=== PATIENT | female | born 1955 | race Caucasian/White ===

== ENCOUNTER 2017-02-01 16:20 | Inpatient (IN) | payer OTHER ==
[2017-02-01] VITALS (430 sets, daily range): BP systolic 78–99; BP diastolic 54–67; PULSE 83–90; TEMP 97.3–97.6; O2SAT 61–100
[~2017-02-01] VITALS: Ht 170.2 cm; Wt 83.4 kg
[~2017-02-01 16:20] MED LIST: ATARAX 25MG25 MG/TAB PO; CLEOCIN HCL300 MG PO; COPEGUS200 MG PO; INCIVEK375 MG PO; LODINE 300300 MG/CAP PO; PRINZIDE 12.5 M1 TA1 PO; PRINZIDE 25 MG-1 TAB PO; SINEQUAN 2525 MG/CAP PO; ZESTRIL 10MG10 MG
[2017-02-01 17:24] LABS: MEAN CELL VOLUME 87 fl (80.0-100.0); MEAN CORPUSCULAR HGB CONC 37 g/dl (33.0-37.0); MEAN PLATELET VOLUME 9.6 fl (7.4-10.4); PLATELET COUNT 200 K/mm3 (130-400); RED BLOOD COUNT 3.12 M/mm3 (4.10-5.30); WHITE BLOOD COUNT 8.7 K/mm3 (4.8-10.8)
[2017-02-01 17:35] LABS: ADJUSTED CALCIUM 7.8 mg/dL (8.4-10.2); ALBUMIN 2.8 gm/dL (3.5-5.0); BILIRUBIN,TOTAL 0.5 mg/dL (0.0-1.0); CALCIUM 6.8 mg/dL (8.4-10.2); POTASSIUM 3.2 mmol/L (3.4-5.0); TOTAL PROTEIN 5.5 gm/dL (6.4-8.2)
[2017-02-01 17:39] LABS: CREATININE, serum 6.64 mg/dL (0.52-1.25)
[2017-02-01 17:40] LABS: HEMATOCRIT 27.2 % (37.0-47.0); MEAN CORPUSCULAR HEMOGLOBIN 32 pg (27.0-31.0)
[2017-02-01 18:01] LABS: TROPONIN-I 0.028 ng/mL (0.000-0.034)
[2017-02-01] MEDS ORDERED: HCTZ 25MG TAB25 MG PO (18:05)
[2017-02-01] MEDS ORDERED: ZESTRIL30 MG PO (18:05)
[2017-02-01] MEDS ORDERED: PROMETHAZINE12.5 M5 PO (18:06)
[2017-02-01 18:34] LABS: HYALINE CAST >12 /lpf; PH 5 (5-8); SQUAMOUS EPITHELIAL 0-2 /hpf; URINE APPEARANCE Cloudy; URINE BACTERIA Rare /hpf; URINE BILIRUBIN Negative (NEGATIVE); URINE BLOOD 1+ (NEGATIVE); URINE COLOR Yellow; URINE GLUCOSE Negative (NEGATIVE); URINE KETONE Negative (NEGATIVE); URINE UROBILINOGEN Negative (NEGATIVE)
[2017-02-01 18:45] LABS: THYROID STIMULATING HORMONE 0.395 uIU/mL (0.465-4.680)
[2017-02-02] VITALS (816 sets, daily range): BP systolic 102–139; BP diastolic 61–85; PULSE 71–95; TEMP 97–98.4; O2SAT 50–100
[2017-02-02 06:39] LABS: BASO % 0.3 % (0.0-2.0); EOS % 0.7 % (0-4.0); GRAN # 4.1 (1.4-6.5); GRAN % 67.4 % (42.2-75.2); LYMPH # 1.5 (1.2-3.4); LYMPH % 24.4 % (20.0-51.0); MEAN CELL VOLUME 89 fl (80.0-100.0); MEAN CORPUSCULAR HGB CONC 36 g/dl (33.0-37.0); MONO # 0.4 (0.1-0.6); MONO % 6.7 % (1.7-9.3); PLATELET COUNT 214 K/mm3 (130-400); RED BLOOD COUNT 2.84 M/mm3 (4.10-5.30); REDCELL DISTRIBUTION WIDTH-CV 11.9 % (11.5-14.5); WHITE BLOOD COUNT 6.1 K/mm3 (4.8-10.8)
[2017-02-02 06:49] LABS: HEMATOCRIT 25.3 % (37.0-47.0); MEAN CORPUSCULAR HEMOGLOBIN 32 pg (27.0-31.0)
[2017-02-02 07:08] LABS: ADJUSTED CALCIUM 8.3 mg/dL (8.4-10.2); ALBUMIN 2.6 gm/dL (3.5-5.0); BILIRUBIN,TOTAL 0.4 mg/dL (0.0-1.0); CALCIUM 7.2 mg/dL (8.4-10.2); CREATININE, serum 3.17 mg/dL (0.52-1.25); POTASSIUM 3.4 mmol/L (3.4-5.0); TOTAL PROTEIN 5.2 gm/dL (6.4-8.2)
[2017-02-03] VITALS (385 sets, daily range): BP systolic 100–119; BP diastolic 59–74; PULSE 75–82; TEMP 97.3–99; O2SAT 71–100
[2017-02-03 04:45] LABS: BASO % 0.5 % (0.0-2.0); EOS # 0.1 (0.0-0.7); EOS % 2.3 % (0-4.0); GRAN # 2.7 (1.4-6.5); GRAN % 60.8 % (42.2-75.2); LYMPH # 1.2 (1.2-3.4); LYMPH % 27.1 % (20.0-51.0); MEAN CELL VOLUME 86 fl (80.0-100.0); MEAN CORPUSCULAR HGB CONC 36 g/dl (33.0-37.0); MEAN PLATELET VOLUME 9.3 fl (7.4-10.4); MONO # 0.4 (0.1-0.6); MONO % 8.8 % (1.7-9.3); PLATELET COUNT 170 K/mm3 (130-400); RED BLOOD COUNT 2.58 M/mm3 (4.10-5.30); REDCELL DISTRIBUTION WIDTH-CV 12.4 % (11.5-14.5); WHITE BLOOD COUNT 4.4 K/mm3 (4.8-10.8)
[2017-02-03 04:47] LABS: HEMATOCRIT 22.3 % (37.0-47.0); HEMOGLOBIN 8.1 g/dl (12.5-16.0); MEAN CORPUSCULAR HEMOGLOBIN 31 pg (27.0-31.0)
[2017-02-03 04:52] LABS: ADJUSTED CALCIUM 8.3 mg/dL (8.4-10.2); ALBUMIN 2.6 gm/dL (3.5-5.0); BILIRUBIN,TOTAL 0.4 mg/dL (0.0-1.0); CALCIUM 7.2 mg/dL (8.4-10.2); CREATININE, serum 0.92 mg/dL (0.52-1.25); POTASSIUM 3.1 mmol/L (3.4-5.0); TOTAL PROTEIN 5.1 gm/dL (6.4-8.2)
[2017-02-03 05:02] LABS: CREATININE, serum 0.92 mg/dL (0.52-1.25); FRACTIONAL EXCRETION OF NA+ 1.5 %
[2017-02-03 14:29] LABS: ADRENOCORTICOTROPIC HORMONE 32 pg/mL (())
[2017-02-04 02:38] VITALS: BP 103/62; PULSE 79; TEMP 98.1
[2017-02-04 07:16] LABS: BASO % 0.4 % (0.0-2.0); EOS # 0.3 (0.0-0.7); EOS % 5.8 % (0-4.0); GRAN # 3.4 (1.4-6.5); GRAN % 65.1 % (42.2-75.2); LYMPH # 1.1 (1.2-3.4); LYMPH % 21.5 % (20.0-51.0); MEAN CELL VOLUME 90 fl (80.0-100.0); MEAN CORPUSCULAR HGB CONC 35 g/dl (33.0-37.0); MEAN PLATELET VOLUME 9.9 fl (7.4-10.4); MONO # 0.4 (0.1-0.6); MONO % 6.8 % (1.7-9.3); PLATELET COUNT 180 K/mm3 (130-400); RED BLOOD COUNT 2.56 M/mm3 (4.10-5.30); REDCELL DISTRIBUTION WIDTH-CV 12.6 % (11.5-14.5); WHITE BLOOD COUNT 5.2 K/mm3 (4.8-10.8)
[2017-02-04 07:33] LABS: CALCIUM 6.8 mg/dL (8.4-10.2); CREATININE, serum 0.71 mg/dL (0.52-1.25); POTASSIUM 3.6 mmol/L (3.4-5.0)
[2017-02-04 07:38] LABS: HEMATOCRIT 22.9 % (37.0-47.0); HEMOGLOBIN 8.1 g/dl (12.5-16.0); MEAN CORPUSCULAR HEMOGLOBIN 32 pg (27.0-31.0)
[2017-02-04 07:42] LABS: MAGNESIUM 0.7 mg/dL (1.6-2.3)
[2017-02-04 08:28] VITALS: BP 85/47; PULSE 86; TEMP 97.8
[2017-02-04 10:41] LABS: RETIC % 1.2 % (0.5-3.52)
[2017-02-04 10:56] LABS: TOTAL IRON BINDING CAPACITY 224 ug/dL (265-497)
[2017-02-04 11:23] LABS: FERRITIN 161 ng/mL (11-264)
[2017-02-04 12:25] VITALS: BP 97/61; PULSE 81; TEMP 98.1
[2017-02-04 15:54] VITALS: BP 107/59; PULSE 74; TEMP 98.9
[2017-02-04 19:32] VITALS: BP 100/66; PULSE 89; TEMP 98.3
[2017-02-04 23:03] VITALS: BP 120/68; PULSE 90; TEMP 98.6
[2017-02-05] VITALS (11 sets, daily range): BP systolic 91–134; BP diastolic 50–81; PULSE 68–78; TEMP 97.6–98.4
[2017-02-05 07:14] LABS: BASO % 0.5 % (0.0-2.0); EOS # 0.4 (0.0-0.7); EOS % 5.9 % (0-4.0); GRAN # 3.9 (1.4-6.5); GRAN % 65.4 % (42.2-75.2); LYMPH # 1.3 (1.2-3.4); LYMPH % 21.2 % (20.0-51.0); MEAN CELL VOLUME 90 fl (80.0-100.0); MEAN CORPUSCULAR HGB CONC 35 g/dl (33.0-37.0); MONO # 0.4 (0.1-0.6); MONO % 6.7 % (1.7-9.3); PLATELET COUNT 165 K/mm3 (130-400); RED BLOOD COUNT 2.42 M/mm3 (4.10-5.30); REDCELL DISTRIBUTION WIDTH-CV 13.1 % (11.5-14.5); WHITE BLOOD COUNT 5.9 K/mm3 (4.8-10.8)
[2017-02-05 07:27] LABS: HEMATOCRIT 21.8 % (37.0-47.0); HEMOGLOBIN 7.6 g/dl (12.5-16.0); MEAN CORPUSCULAR HEMOGLOBIN 31 pg (27.0-31.0)
[2017-02-05 07:29] LABS: ADJUSTED CALCIUM 7.9 mg/dL (8.4-10.2); ALBUMIN 2.3 gm/dL (3.5-5.0); BILIRUBIN,TOTAL 0.3 mg/dL (0.0-1.0); CALCIUM 6.5 mg/dL (8.4-10.2); CREATININE, serum 0.58 mg/dL (0.52-1.25); POTASSIUM 4.2 mmol/L (3.4-5.0); TOTAL PROTEIN 4.6 gm/dL (6.4-8.2)
[2017-02-06 03:47] VITALS: BP 88/52; PULSE 81; TEMP 97.8
[2017-02-06 06:00] VITALS: BP 103/75
[2017-02-06 07:50] LABS: BASO % 0.4 % (0.0-2.0); EOS # 0.4 (0.0-0.7); GRAN # 2.9 (1.4-6.5); GRAN % 61.5 % (42.2-75.2); LYMPH # 1.1 (1.2-3.4); LYMPH % 23.7 % (20.0-51.0); MEAN CELL VOLUME 93 fl (80.0-100.0); MEAN CORPUSCULAR HGB CONC 34 g/dl (33.0-37.0); MONO # 0.3 (0.1-0.6); PLATELET COUNT 154 K/mm3 (130-400); RED BLOOD COUNT 2.41 M/mm3 (4.10-5.30); REDCELL DISTRIBUTION WIDTH-CV 13.2 % (11.5-14.5); WHITE BLOOD COUNT 4.6 K/mm3 (4.8-10.8)
[2017-02-06 07:54] LABS: HEMATOCRIT 22.3 % (37.0-47.0); HEMOGLOBIN 7.5 g/dl (12.5-16.0); MEAN CORPUSCULAR HEMOGLOBIN 31 pg (27.0-31.0)
[2017-02-06 07:58] LABS: ADJUSTED CALCIUM 7.9 mg/dL (8.4-10.2); ALANINE AMINOTRANSFERASE 40 U/L (9-52); ALBUMIN 2.2 gm/dL (3.5-5.0); ALKALINE PHOSPHATASE 39 U/L (50-136); ANION GAP 6 mmol/L (7-16); BILIRUBIN,TOTAL 0.3 mg/dL (0.0-1.0); CALCIUM 6.5 mg/dL (8.4-10.2); CHLORIDE 116 mmol/L (98-107); CREATININE, serum 0.58 mg/dL (0.52-1.25); GLUCOSE 73 mg/dL (74-106); POTASSIUM 4.7 mmol/L (3.4-5.0); SODIUM 135 mmol/L (137-145); TOTAL PROTEIN 4.6 gm/dL (6.4-8.2)
[2017-02-06 08:00] LABS: BLOOD UREA NITROGEN < 2 mg/dL (7-17)
[2017-02-06 08:03] LABS: CARBON DIOXIDE 13 mmol/L (22-30); MAGNESIUM 0.9 mg/dL (1.6-2.3)
[2017-02-06 08:30] VITALS: BP 115/84; PULSE 78; TEMP 98.1
[2017-02-06 11:16] VITALS: BP 105/66; PULSE 93; TEMP 98.4
[2017-02-06 15:21] VITALS: BP 120/79; PULSE 83; TEMP 98.3
[2017-02-06 20:26] VITALS: BP 109/65; PULSE 76; TEMP 98.4
[2017-02-07 00:27] VITALS: BP 94/54; PULSE 66; TEMP 98.4
[2017-02-07 04:02] VITALS: BP 96/54; PULSE 71; TEMP 98.1
[2017-02-07 07:56] LABS: BASO % 0.4 % (0.0-2.0); EOS # 0.3 (0.0-0.7); EOS % 5.5 % (0-4.0); GRAN # 2.6 (1.4-6.5); GRAN % 55.1 % (42.2-75.2); LYMPH # 1.5 (1.2-3.4); LYMPH % 32.1 % (20.0-51.0); MEAN CELL VOLUME 92 fl (80.0-100.0); MEAN CORPUSCULAR HGB CONC 34 g/dl (33.0-37.0); MEAN PLATELET VOLUME 9.9 fl (7.4-10.4); MONO # 0.3 (0.1-0.6); MONO % 6.5 % (1.7-9.3); PLATELET COUNT 153 K/mm3 (130-400); RED BLOOD COUNT 2.48 M/mm3 (4.10-5.30); REDCELL DISTRIBUTION WIDTH-CV 13.4 % (11.5-14.5); WHITE BLOOD COUNT 4.8 K/mm3 (4.8-10.8)
[2017-02-07 08:00] LABS: HEMATOCRIT 22.9 % (37.0-47.0); HEMOGLOBIN 7.8 g/dl (12.5-16.0); MEAN CORPUSCULAR HEMOGLOBIN 31 pg (27.0-31.0)
[2017-02-07 08:23] LABS: ADJUSTED CALCIUM 8.5 mg/dL (8.4-10.2); ALANINE AMINOTRANSFERASE 41 U/L (9-52); ALBUMIN 2.4 gm/dL (3.5-5.0); ALKALINE PHOSPHATASE 45 U/L (50-136); ANION GAP 6 mmol/L (7-16); BILIRUBIN,TOTAL 0.4 mg/dL (0.0-1.0); CALCIUM 7.2 mg/dL (8.4-10.2); CARBON DIOXIDE 16 mmol/L (22-30); CHLORIDE 112 mmol/L (98-107); CREATININE, serum 0.58 mg/dL (0.52-1.25); GLUCOSE 77 mg/dL (74-106); MAGNESIUM 1.9 mg/dL (1.6-2.3); POTASSIUM 4.6 mmol/L (3.4-5.0); SODIUM 135 mmol/L (137-145); TOTAL PROTEIN 4.9 gm/dL (6.4-8.2)
[2017-02-07 08:34] LABS: BLOOD UREA NITROGEN < 2 mg/dL (7-17)
[2017-02-07 08:55] VITALS: BP 113/66; PULSE 79; TEMP 98.9
[2017-02-07] MEDS ORDERED: TYLENOL 325MG325 MG PO (10:15)
[2017-02-07] MEDS ORDERED: SODIUM BICARBO650 MG PO (10:24)
[2017-02-07] MEDS ORDERED: MAG-OX 400400 MG/TAB PO (10:24)
[2017-02-07] MEDS ORDERED: FERROUS SU325 MG/TAB PO (10:24)
[2017-02-07] MEDS ORDERED: PROTONIX 40MG T40 MG PO (10:24)
[2017-02-07] MEDS ORDERED: MULTI-VITAMIN W1 TA2 PO (10:24)
[2017-02-07] MEDS ORDERED: PHOSPHA 250 NEU1 TAB PO (10:24)
[2017-02-07 11:10] VITALS: BP 124/70; PULSE 95; TEMP 98.3
== END 2017-02-07 13:04 | disposition home or self-care (01) | DRG 683 ==
LOC: MEDICAL 16:20 → ICU 16:20 → MEDICAL 02-03 11:48
PROVIDERS: Family Medicine; Internal Medicine; Internal Medicine Gastroenterology; Nurse Practitioner Family; Physician Assistant
PROC: 0DB98ZX Excision of Duodenum, Via Natural or Artificial Opening Endoscopic, Diagnostic (ICD-10-PCS; principal; 2017-02-05 12:45)
PROC: 0DBE8ZX Excision of Large Intestine, Via Natural or Artificial Opening Endoscopic, Diagnostic (ICD-10-PCS; 2017-02-05 12:45)
DX: N17.9 Acute kidney failure, unspecified (principal); E87.2 Acidosis; E86.0 Dehydration; R19.7 Diarrhea, unspecified; E78.5 Hyperlipidemia, unspecified; D64.9 Anemia, unspecified; E83.42 Hypomagnesemia; E87.6 Hypokalemia; K26.9 Duodenal ulcer, unspecified as acute or chronic, without hemorrhage or perforation; K21.0 Gastro-esophageal reflux disease with esophagitis; K29.70 Gastritis, unspecified, without bleeding; F17.210 Nicotine dependence, cigarettes, uncomplicated
CPT/HCPCS: 99223-AI; 99232-AI; 99233-AI; 99239; J0696; J1644; J2250; J2405; J3010; J3475; J3480; J7030; J7060; Q9967

== ENCOUNTER 2018-02-25 15:26 | Inpatient (IN) | payer OTHER ==
[~2018-02-25] VITALS: Ht 170.2 cm; Wt 76.2 kg
[2018-02-25] VITALS (256 sets, daily range): BP systolic 76–96; BP diastolic 44–62; PULSE 83–92; TEMP 97.6–98.5; O2SAT 73–100
[~2018-02-25 15:26] MED LIST changes: +FERROUS SU325 MG/TAB PO; +HCTZ 25MG TAB25 MG PO; +MAG-OX 400400 MG/TAB PO; +MULTI-VITAMIN W1 TA2 PO; +PHOSPHA 250 NEU1 TAB PO; +PROMETHAZINE12.5 M5 PO; +PROTONIX 40MG T40 MG PO; +SODIUM BICARBO650 MG PO; +TYLENOL 325MG325 MG PO; +ZESTRIL30 MG PO
[2018-02-25] MEDS ORDERED: LIPITOR20 MG PO (16:32)
[2018-02-25] MEDS ORDERED: ZESTRIL30 MG PO (16:33)
[2018-02-25] MEDS ORDERED: HCTZ 25MG TAB25 MG PO (16:33)
[2018-02-25] MEDS ORDERED: CELEBREX 200MG200 MG PO (16:34)
[2018-02-25] MEDS ORDERED: CYMBALTA 20MG20 MG PO (16:34)
[2018-02-25 23:04] LABS: URINE PROTEIN:CREAT RATIO 0.46 (0.00-0.14)
[2018-02-26] VITALS (522 sets, daily range): BP systolic 83–143; BP diastolic 54–82; PULSE 73–86; TEMP 97.4–99.5; O2SAT 74–100
[2018-02-26 05:57] LABS: BASO % 0.4 % (0.0-2.0); EOS # 0.1 (0.0-0.7); EOS % 0.6 % (0-4.0); GRAN # 5.4 (1.4-6.5); GRAN % 66.4 % (42.2-75.2); HEMOGLOBIN 11.6 g/dl (12.5-16.0); LYMPH # 2.1 (1.2-3.4); LYMPH % 26.1 % (20.0-51.0); MEAN CELL VOLUME 94 fl (80.0-100.0); MEAN CORPUSCULAR HEMOGLOBIN 33 pg (27.0-31.0); MEAN CORPUSCULAR HGB CONC 35 g/dl (33.0-37.0); MEAN PLATELET VOLUME 9.2 fl (7.4-10.4); MONO # 0.5 (0.1-0.6); MONO % 6.3 % (1.7-9.3); PLATELET COUNT 191 K/mm3 (130-400); RED BLOOD COUNT 3.57 M/mm3 (4.10-5.30); REDCELL DISTRIBUTION WIDTH-CV 12.2 % (11.5-14.5)
[2018-02-26 05:58] LABS: HEMATOCRIT 33.5 % (37.0-47.0)
[2018-02-26 06:07] LABS: CALCIUM 7.5 mg/dL (8.4-10.2); CREATININE, serum 1.68 mg/dL (0.52-1.25); MAGNESIUM 1.7 mg/dL (1.6-2.3); POTASSIUM 3.3 mmol/L (3.4-5.0)
[2018-02-26 06:14] LABS: CREATININE, serum 1.68 mg/dL (0.52-1.25)
[2018-02-27 03:36] VITALS: BP 140/82; PULSE 73; TEMP 98.3
[2018-02-27 07:28] VITALS: BP 143/87; PULSE 87; TEMP 99.4
[2018-02-27 09:46] LABS: CALCIUM 8.4 mg/dL (8.4-10.2); CREATININE, serum 0.64 mg/dL (0.52-1.25); POTASSIUM 3.3 mmol/L (3.4-5.0)
[2018-02-27 11:44] VITALS: BP 121/73; PULSE 84; TEMP 98.5
[2018-02-27 15:25] VITALS: BP 130/71; PULSE 93; TEMP 98.4
[2018-02-27 20:13] VITALS: BP 165/88; PULSE 88; TEMP 98.4
[2018-02-27 23:36] VITALS: BP 180/88; PULSE 85; TEMP 98.5
[2018-02-28 02:40] VITALS: BP 149/85; PULSE 73; TEMP 98.3
[2018-02-28 07:35] VITALS: BP 138/74; PULSE 95; TEMP 98.4
[2018-02-28 10:13] LABS: CALCIUM 8.4 mg/dL (8.4-10.2); CREATININE, serum 0.51 mg/dL (0.52-1.25); POTASSIUM 3.4 mmol/L (3.4-5.0)
[2018-02-28] MEDS ORDERED: TYLENOL 500MG500 MG PO (11:00)
[2018-02-28] MEDS ORDERED: ZESTRIL 10MG10 MG PO (11:02)
[2018-02-28] MEDS ORDERED: K-TAB20 PO (11:03)
[2018-02-28 11:54] VITALS: BP 142/90; PULSE 80; TEMP 98.4
== END 2018-02-28 15:08 | disposition home or self-care (01) | DRG 683 ==
LOC: ICU 15:26 → MEDICAL 02-26 13:03
PROVIDERS: Internal Medicine Nephrology; Physician Assistant
DX: N17.9 Acute kidney failure, unspecified (principal); E87.1 Hypo-osmolality and hyponatremia; E87.2 Acidosis; I95.9 Hypotension, unspecified; E87.6 Hypokalemia; E83.42 Hypomagnesemia; E78.5 Hyperlipidemia, unspecified; K21.9 Gastro-esophageal reflux disease without esophagitis; D64.9 Anemia, unspecified; M19.90 Unspecified osteoarthritis, unspecified site
CPT/HCPCS: 99232-AI; 99239; C9113; J0692; J1644; J2270; J3475; J7030; J7040

== ENCOUNTER 2021-03-21 10:38 | Day surgery (SDC) | payer OTHER ==
[~2021-03-21] VITALS: Ht 170.2 cm; Wt 46.8 kg
[~2021-03-21 10:38] MED LIST changes: +CELEBREX 200MG200 MG PO; +CYMBALTA 20MG20 MG PO; +K-TAB20 PO; +LIPITOR20 MG PO; +TYLENOL 500MG500 MG PO; +ZESTRIL 10MG10 MG PO
[2021-03-21 12:27] VITALS: BP 91/71; PULSE 84; TEMP 97.5
[2021-03-21] MEDS ORDERED: NORVASC 10MG10 MG PO (12:29)
[2021-03-21] MEDS ORDERED: ATARAX 25MG25 MG/TAB PO (12:30)
[2021-03-21] MEDS ORDERED: ROBAXIN 50500 MG/TAB PO (12:30)
[2021-03-21] MEDS ORDERED: VITAMIN B12 781 TAB PO (12:31)
[2021-03-21 12:34] LABS: ALBUMIN 3.3 gm/dL (3.5-5.0); CALCIUM 8.4 mg/dL (8.4-10.2); CREATININE, serum 0.74 (0.52-1.25); POTASSIUM 4.6 mmol/L (3.4-5.0)
[2021-03-21 13:19] VITALS: BP 100/59; PULSE 65; TEMP 98.7
[2021-03-21] MEDS ORDERED: NORCO 325 MG-51 TAB PO (13:25)
[2021-03-21] MEDS ORDERED: MOTRIN 600600 MG/TAB PO (13:25)
[2021-03-21 13:30] VITALS: BP 107/64; PULSE 65
[2021-03-21 13:45] VITALS: BP 113/74; PULSE 64
[2021-03-21 14:00] VITALS: BP 105/66; PULSE 67
[2021-03-21 14:30] VITALS: BP 123/82; PULSE 67
== END 2021-03-21 15:20 | disposition home or self-care (01) ==
LOC: SDCO 10:38
PROVIDERS: Surgery
DX: C10.9 Malignant neoplasm of oropharynx, unspecified (principal); I10 Essential (primary) hypertension; E78.00 Pure hypercholesterolemia, unspecified; D69.6 Thrombocytopenia, unspecified; M48.00 Spinal stenosis, site unspecified; R13.12 Dysphagia, oropharyngeal phase; R63.4 Abnormal weight loss; F17.210 Nicotine dependence, cigarettes, uncomplicated; Z79.891 Long term (current) use of opiate analgesic; Z79.899 Other long term (current) drug therapy; Z82.3 Family history of stroke
CPT/HCPCS: J0690; J2704; J7120

== ENCOUNTER 2021-08-07 10:30 | Emergency (ER) | payer OTHER ==
[~2021-08-07] VITALS: Ht 170.2 cm; Wt 56.8 kg
[~2021-08-07 10:30] MED LIST changes: +MOTRIN 600600 MG/TAB PO; +NORCO 325 MG-51 TAB PO; +NORVASC 10MG10 MG PO; +ROBAXIN 50500 MG/TAB PO; +VITAMIN B12 781 TAB PO
[2021-08-07 11:58] VITALS: BP 121/86; PULSE 78; TEMP 97.8
== END 2021-08-07 11:58 | disposition home or self-care (01) ==
LOC: COL.ER 10:30
DX: K94.23 Gastrostomy malfunction (principal); I10 Essential (primary) hypertension; E78.5 Hyperlipidemia, unspecified; K21.9 Gastro-esophageal reflux disease without esophagitis; G89.29 Other chronic pain; M54.9 Dorsalgia, unspecified; Z79.899 Other long term (current) drug therapy; Z79.1 Long term (current) use of non-steroidal anti-inflammatories (NSAID)

== ENCOUNTER 2021-09-09 11:59 | Inpatient (IN) | payer OTHER ==
[~2021-09-09] VITALS: Ht 167.6 cm; Wt 55.0 kg
[2021-09-09 12:45] LABS: MEAN CELL VOLUME 85 fl (80.0-100.0); MEAN CORPUSCULAR HGB CONC 32 g/dl (33.0-37.0); MEAN PLATELET VOLUME 8.3 fl (7.4-10.4); PLATELET COUNT 376 K/mm3 (130-400); RED BLOOD COUNT 3.61 M/mm3 (4.10-5.30); REDCELL DISTRIBUTION WIDTH-CV 14.2 % (11.5-14.5)
[2021-09-09 12:46] LABS: HEMATOCRIT 30.7 % (37.0-47.0); HEMOGLOBIN 9.9 g/dl (12.5-16.0); MEAN CORPUSCULAR HEMOGLOBIN 27 pg (27-31)
[2021-09-09 13:05] LABS: ALBUMIN 3.4 gm/dL (3.4-4.8); BAND 3 % (0-10); BILIRUBIN,TOTAL 0.4 mg/dL (0.2-1.2); CALCIUM 9.7 mg/dL (8.4-10.2); CREATININE, serum 0.94 mg/dL (0.57-1.11); LYMPHOCYTE 6 % (20.0-51.0); NEUTROPHILS 88 % (42.0-75.2); PLATELET ESTIMATE NORMAL (NORMAL); POTASSIUM 4.6 mmol/L (3.5-4.5); TOTAL PROTEIN 7.8 gm/dL (6.2-8.1)
[2021-09-09 13:06] LABS: HYPOCHROMIA 1+
--- NOTE | 2021-09-09 15:39 | NUR ---
KAYLAN responded to consult. The patient has a history of cancer and has been in remission for 6 months. She came in today for swelling in her face. The ED scanned the patient's face today and it appears to be an enlarged mass. The ED would like to admit the patient, but the patient would like to go home. The patient's RN informed KAYLAN that the patient's is at bedside and is adamant and is telling the patient she will stay here. KAYLAN met with the patient and her , Mo (ph#[phone]). After introducing oneself, the patient informed KAYLAN that she wants aggressive treatment. The patient reports that she is open to staying now. The patient's then reported that he convinced the patient to stay. The patient lives in [place] with her and their son. She reports that their granddaughter is visiting right now. The patient and Mo would like to hear from the doctors and the oncologist on if there is any course of treatment for the cancer and if it would help the patient. They had no other questions for concerns for KAYLAN at this time. KAYLAN updated the patient's RN. The patient is to be admitted to the hospital.
[2021-09-09 17:36] LABS: TSH w REFLEX 5.816 uIU/mL (0.350-4.940)
[2021-09-09 18:14] LABS: CALCIUM 9.2 mg/dL (8.4-10.2); CREATININE, serum 0.83 mg/dL (0.57-1.11); POTASSIUM 4.3 mmol/L (3.5-4.5)
[2021-09-09 18:57] VITALS: BP 124/77; PULSE 105; TEMP 99.4
--- NOTE | 2021-09-09 19:26 | NUR ---
REport from ER nurse. REport given to Nat rodriguez. Patient in room 324. Provided with juice & a sandwich box. Vitals taken & tele placed on patient. Ivf & antibioitc per orders.
[2021-09-09 20:24] LABS: COLLECTION METHOD CLEAN CATCH
[2021-09-09 20:30] LABS: PH 6 (5-8); SQUAMOUS EPITHELIAL 0-2 /hpf (0-10); URINE APPEARANCE Clear (CLEAR/HAZY); URINE BACTERIA None Seen /hpf (NONE SEEN); URINE BILIRUBIN Negative (NEGATIVE); URINE BLOOD Negative (NEGATIVE); URINE COLOR Yellow (YELLOW); URINE GLUCOSE Negative (NEGATIVE); URINE KETONE Negative (NEGATIVE); URINE LEUKOCYTE ESTERASE Negative (NEGATIVE); URINE NITRATE Negative (NEGATIVE); URINE PROTEIN(semi-quant) Negative (NEGATIVE); URINE RBC 0-2 /hpf (0-2); URINE UROBILINOGEN Negative (NEGATIVE)
[2021-09-09 21:01] LABS: OSMOLALITY-URINE random 416 Osm/kg (50-1200)
[2021-09-09 23:40] VITALS: BP 99/59; PULSE 92; TEMP 99.2
[2021-09-10] MEDS ORDERED: DAZIDOX10 MG PO (00:45)
[2021-09-10] MEDS ORDERED: PREDNISOLO15 MG/5 M3 PO (02:01)
[2021-09-10] MEDS ORDERED: CYMBALTA 60MG60 MG PO (02:02)
[2021-09-10 04:00] VITALS: BP 110/67; PULSE 88; TEMP 98.4
[2021-09-10 06:17] LABS: BASO # 0.1 K/mm3 (0.0-0.2); BASO % 0.4 % (0.0-2.0); EOS # 0.5 K/mm3 (0.0-0.7); EOS % 3.4 % (0.0-4.0); GRAN # 11.8 K/mm3 (1.4-6.5); GRAN % 85.8 % (42.2-75.2); LYMPH # 0.8 K/mm3 (1.2-3.4); LYMPH % 5.6 % (20.0-51.0); MEAN CELL VOLUME 84 fl (80.0-100.0); MEAN CORPUSCULAR HGB CONC 32 g/dl (33.0-37.0); MEAN PLATELET VOLUME 8.4 fl (7.4-10.4); MONO # 0.6 K/mm3 (0.1-0.6); MONO % 4.3 % (1.7-9.3); PLATELET COUNT 339 K/mm3 (130-400); RED BLOOD COUNT 3.37 M/mm3 (4.10-5.30); REDCELL DISTRIBUTION WIDTH-CV 14.2 % (11.5-14.5)
[2021-09-10 06:35] LABS: HEMATOCRIT 28.3 % (37.0-47.0); MEAN CORPUSCULAR HEMOGLOBIN 27 pg (27-31)
[2021-09-10 06:38] LABS: CALCIUM 8.9 mg/dL (8.4-10.2); CREATININE, serum 0.73 mg/dL (0.57-1.11); POTASSIUM 3.5 mmol/L (3.5-4.5)
--- NOTE | 2021-09-10 06:58 | NUR ---
sitting up in bed and appears to be sleeping, bedside shift report received from NAMRATA Johns
--- NOTE | 2021-09-10 07:14 | NUR ---
pt requesting pain meds frequently this shift, morphine given x4, oxycodone x4, dosage changed to her home dose. pt able to tolerate low fiber diet, no N/V, IVF infusing per PIV @ 125cc/hr. placed on O2 @2L for low sat on RA. up to restroom with SBA. dressing to GT site changed x2 this shift for pinkish drainage.
--- NOTE | 2021-09-10 07:40 | NUR ---
continues to appear to sleep
[2021-09-10 08:24] VITALS: BP 116/61; PULSE 80; TEMP 98.4
--- NOTE | 2021-09-10 08:30 | NUR ---
up to bathroom with CNAs assisting
--- NOTE | 2021-09-10 09:00 | NUR ---
Dr Cardenas was in to see patient and removed PEG tube, area is very red and excoriated, covered with gauze by Dr Cardenas, c/o pain to face and where tube was, medicated with morphine 2mg slow Iv, full assessment completed, see interventions for further info, assisted her with ordering breakfast, denies other needs
--- NOTE | 2021-09-10 09:28 | NUR ---
physical and occupational therapy in to work with patient
--- NOTE | 2021-09-10 10:03 | NUR ---
sitting up in bed eating breakfast, crying in pain
--- NOTE | 2021-09-10 10:05 | NUR ---
Initial visit; Patient in pain but thanked [employer] for visiting her and offering prayer and God's blessings. [facility] will visit Shannen while she is a patient here.
--- NOTE | 2021-09-10 10:20 | NUR ---
eating breakfast but continues to c/o pain to abdomen where PEG tube was removed, medicated with roxicodone 10mg, called pharmacy to check on mandi, Caridad RN, oncology, in to visit with patient
--- NOTE | 2021-09-10 10:53 | NUR ---
continues to eat breakfast, calmoseptine cream applied to Gtube site earlier and she states this is helping the burning,
--- NOTE | 2021-09-10 11:12 | NUR ---
resting in bed with eyes closed
--- NOTE | 2021-09-10 11:32 | NUR ---
I met with patient at bedside this am. She reports "a lot of pain" but also reports that she wants to seek aggressive care to treat her cancer. She reports that her will be here this afternoon.
--- NOTE | 2021-09-10 12:38 | NUR ---
Dr Harden was in to see patient and then Dr Rodriguez
[2021-09-10 12:50] VITALS: BP 102/64; PULSE 91; TEMP 98.1
--- NOTE | 2021-09-10 13:36 | NUR ---
sitting up in bed eating lunch at this time
--- NOTE | 2021-09-10 14:00 | NUR ---
is crying in pain, c/o burning to abdomen on both the inside and out
--- NOTE | 2021-09-10 14:15 | NUR ---
Dr Harden notified of her continued pain, medicated with morphine 2mg slow IV and ativan 0.5mg po, is trying to eat, now states the pain is burning pain on the outside of her stomach
--- NOTE | 2021-09-10 14:15 | NUR ---
Pt reports that she is still having a lot of abdominal pain and is crying. Her primary nurse has contacted Dr Harden and new orders are in progress and pt is aware. She reports that Dr Rodriguez saw her today and advised her that first the infection needs to get treated and then they could talk about more chemotherapy. She is still very determined to proceed with treatment. Her is not here yet.
--- NOTE | 2021-09-10 14:43 | NUR ---
resting quietly, is not crying or moaning at this time, states pain is better but requesting roxicodone
--- NOTE | 2021-09-10 14:50 | NUR ---
entered room to medicate with roxicodone and she is dozing at intervals, will wait at this time
--- NOTE | 2021-09-10 15:21 | NUR ---
continues to appear to be sleeping
[2021-09-10 16:00] VITALS: BP 133/72; PULSE 85; TEMP 98.3
--- NOTE | 2021-09-10 16:48 | NUR ---
entered room and started IV antibiotic and she continued to sleep while in the room
--- NOTE | 2021-09-10 18:21 | NUR ---
continues to sleep
--- NOTE | 2021-09-10 18:31 | NUR ---
awakened and offered to order her supper, declines supper
--- NOTE | 2021-09-10 18:57 | NUR ---
appears to be sleeping, awakened and bedside shift report given to NAMRATA Christine
[2021-09-10 19:17] VITALS: BP 130/75; PULSE 66; TEMP 99
--- NOTE | 2021-09-10 20:03 | NUR ---
Bedside shift report received, assumed care for clothing supervisor. Assessment complete. A&Ox4. Rating pain 10/10 on pain scale to abdomen and mouth-described as constant throbbing. Medicated per dr order. Denies nausea/shortness of breath. VS remain stable. Noted to have bloody discharge coming from old peg tube site. Dressing applied with barrier cream. Plan of care discussed for this shift to include meds/calling for increased pain/drainage at peg tube site. Verbalizes understanding. Call light in reach. Will monitor.
--- NOTE | 2021-09-10 22:15 | NUR ---
Called with c/o pain to left face/abdomen-rating pain 8/10 on pain scale-described as constant throbbing. Morphine given per dr order. Dressing to old peg tube site completely saturated with serosanguineous fluid. Changed at this time using barrier cream/4x4s/ABDs.
[2021-09-11] VITALS (7 sets, daily range): BP systolic 109–135; BP diastolic 67–78; PULSE 79–91; TEMP 98.1–99.1
--- NOTE | 2021-09-11 01:00 | NUR ---
Resting eyes closed. No s/s of pain noted.
--- NOTE | 2021-09-11 04:30 | NUR ---
IV to left forearm infiltrated and leaking. DCd at this time-cath intact. Attempted to restart x2 with no success. Noted to have a port site to right chest. Will attempt port placement.
--- NOTE | 2021-09-11 05:51 | NUR ---
Portacath to right chest accessed at this time by NAMRATA Dodge with a 19g 1in needle with immediate blood return. Patient tolerated well.
[2021-09-11 08:40] LABS: BASO % 0.5 % (0.0-2.0); EOS # 0.2 K/mm3 (0.0-0.7); EOS % 2.1 % (0.0-4.0); GRAN # 7.3 K/mm3 (1.4-6.5); GRAN % 84.3 % (42.2-75.2); LYMPH # 0.7 K/mm3 (1.2-3.4); LYMPH % 7.5 % (20.0-51.0); MEAN CELL VOLUME 81 fl (80.0-100.0); MEAN CORPUSCULAR HGB CONC 33 g/dl (33.0-37.0); MEAN PLATELET VOLUME 8.3 fl (7.4-10.4); MONO # 0.5 K/mm3 (0.1-0.6); MONO % 5.3 % (1.7-9.3); PLATELET COUNT 334 K/mm3 (130-400); RED BLOOD COUNT 3.23 M/mm3 (4.10-5.30); REDCELL DISTRIBUTION WIDTH-CV 14.2 % (11.5-14.5)
[2021-09-11 08:41] LABS: HEMOGLOBIN 8.7 g/dl (12.5-16.0); MEAN CORPUSCULAR HEMOGLOBIN 27 pg (27-31)
[2021-09-11 08:42] LABS: HEMATOCRIT 26.2 % (37.0-47.0)
[2021-09-11 08:58] LABS: CALCIUM 8.6 mg/dL (8.4-10.2); CREATININE, serum 0.63 mg/dL (0.57-1.11); MAGNESIUM 1.6 mg/dL (1.6-2.6); POTASSIUM 3.6 mmol/L (3.5-4.5)
--- NOTE | 2021-09-11 09:23 | NUR ---
Follow-up visit; Patient experiencing excruciating pain. Technology Strategist listened and prayed and will continue prayer for Shannen. Technology Strategist spoke with her nurses who are all attentive and helping her however they can. Technology Strategist will continue to visit and pray.
--- NOTE | 2021-09-11 10:21 | NUR ---
ASSESSMENT COMPLETED, PT IN SIGNIFICANT PAIN D/T REDNESS AND SKIN BREAKDOWN IN AREA OF OLD PEG TUBE. THERE IS FREQUENT DRAINAGE COMING FROM SITE, DRAINAGE INCREASES AFTER PO INTAKE AND APPEARS TO BE WHAT PT JUST CONSUMED. DR FENG NOTIFIED. OSTOMY APPLIANCE PLACED TO SITE TO CUT DOWN THE AMOUNT OF MOISTURE IN THE AREA.
--- NOTE | 2021-09-11 20:00 | NUR ---
Pt. sitting up in bed. Pt. is A&OX3, assessment complete. PORT to rt. chest patent, IV fluids infusing per orders. Pt. reports pain at an 8 on pain scale, gave pain meds per orders. Pt. denies further needs, call light within reach.
[2021-09-12 04:09] VITALS: BP 121/69; PULSE 79; TEMP 98.5
[2021-09-12 06:57] LABS: BASO % 0.5 % (0.0-2.0); EOS # 0.2 K/mm3 (0.0-0.7); EOS % 3.1 % (0.0-4.0); GRAN # 4.9 K/mm3 (1.4-6.5); LYMPH # 0.7 K/mm3 (1.2-3.4); LYMPH % 10.7 % (20.0-51.0); MEAN CELL VOLUME 83 fl (80.0-100.0); MEAN CORPUSCULAR HGB CONC 33 g/dl (33.0-37.0); MEAN PLATELET VOLUME 8.7 fl (7.4-10.4); MONO # 0.6 K/mm3 (0.1-0.6); MONO % 9.2 % (1.7-9.3); PLATELET COUNT 368 K/mm3 (130-400); RED BLOOD COUNT 3.02 M/mm3 (4.10-5.30)
[2021-09-12 07:04] LABS: HEMATOCRIT 24.9 % (37.0-47.0); HEMOGLOBIN 8.1 g/dl (12.5-16.0); MEAN CORPUSCULAR HEMOGLOBIN 27 pg (27-31)
[2021-09-12 07:20] LABS: CALCIUM 8.5 mg/dL (8.4-10.2); CREATININE, serum 0.66 mg/dL (0.57-1.11); MAGNESIUM 1.5 mg/dL (1.6-2.6)
[2021-09-12 07:22] VITALS: BP 109/85; PULSE 78; TEMP 98
--- NOTE | 2021-09-12 08:00 | NUR ---
PATIENT IS A&O. VSS ON TELE. PATIENT C/O PAIN, WHICH SHE REPORTS IS CHRONIC FOR HER. GAVE PRN IV DILAUDID PER ORDERS. PATIENT IS ABLE TO TAKE PILLS AND EAT HOWEVER, SHE CAN NOT OPEN HER MOUTH VERY FAR. NOTED LARGE, APPROX GOLF BALL SIZED MASS TO LEFT SIDE FACE. PATIENT HAS HX OF OROPHARYNGEAL CA WITH METS. BREAKFAST TRAY AT BEDSIDE. NO C/O N/V. VOIDING SUFFICIENT AMOUNTS. IV FLUIDS INFUSING VIA PUMP INTO RIGHT PORT. LEFT ABD PEG TUBE REMOVAL SITE WITH MOD AMOUNTS OF GREEN DRAINAGE, OSTOMY BAG APPLIED OVER SITE TO KEEP GASTRIC DRAINAGE OFF SKIN. PATIENT IS WEAK AND PALE. 1 ASSIST WITH ACTIVITY BUT HIGH RISK FOR FALLS. PT/OT CONSULTED. HEAD TO TOE ASSESSMENT COMPLETE. AM MEDS GIVEN. NO OTHER NEEDS AT THIS TIME. CALL LIGHT IN REACH.
--- NOTE | 2021-09-12 08:30 | NUR ---
AT BEDSIDE, SEE ORDERS.
[2021-09-12 11:58] VITALS: BP 132/87; PULSE 81; TEMP 98.6
[2021-09-12 15:24] VITALS: BP 134/71; PULSE 80; TEMP 98.9
--- NOTE | 2021-09-12 19:10 | NUR ---
Bedside shift report received, assumed care for fast food shift supervisor. Assessment complete. A&Ox4. Denies shortness of breath/nausea. Rating pain 8/10 on pain scale to abdomen/mouth-oxycodone/dilaudid given per dr order. Ostomy bag/wafer to old peg tube site-left abdomen. Portacath to right chest flushes well with good blood return. Plan of care discussed for this shift to include meds/pain control/NPO at midnight. Verbalizes understanding/denies needs. Call light in reach. Will monitor.
[2021-09-12 20:48] VITALS: BP 142/75; PULSE 83; TEMP 98.5
[2021-09-12 23:06] VITALS: BP 128/66; PULSE 78; TEMP 98
--- NOTE | 2021-09-12 23:08 | NUR ---
Called with c/o pain to mouth/abdomen-rating pain 8/10 on pain scale-described as constant throbbing. Hydrocodone/dilaudid given per dr order.
[2021-09-13] VITALS (12 sets, daily range): BP systolic 117–134; BP diastolic 56–75; PULSE 65–87; TEMP 97.8–98
--- NOTE | 2021-09-13 | NUR ---
Resting in bed watching TV. Fluids removed due to NPO status. Denies current needs. Call light in reach. Will monitor.
--- NOTE | 2021-09-13 01:19 | NUR ---
called with c/o pain to abdomen/mouth. Rating pain 8/10 on pain scale. Dilaudid given per dr order.
--- NOTE | 2021-09-13 05:36 | NUR ---
Called with c/o pain to face/mouth/abdomen. Oxycodone given per dr order.
[2021-09-13 06:38] LABS: CALCIUM 9.2 mg/dL (8.4-10.2); CREATININE, serum 0.68 mg/dL (0.57-1.11); POTASSIUM 3.7 mmol/L (3.5-4.5)
--- NOTE | 2021-09-13 08:30 | NUR ---
PATIENT GOING DOWN TO OR VIA BED. CONSENT OBTAINED BY REPRESENTATIVE PERSONAL SERVICE AND ON CHART. IV FLUIDS HANGING VIA GRAVITY. PATIENT OFF FLOOR.
--- NOTE | 2021-09-13 09:55 | NUR ---
PATIENT BACK IN ROOM POST OP, DROWSY. VSS. LEFT ABD PEG TUBE SIDE IS CD&I. WILL MONITOR.
--- NOTE | 2021-09-13 10:28 | NUR ---
Follow-up visit; Patient thanked Movie Operator for her visits and prayer card. Movie Operator offered comfort and prayer for Shannen and will continue to do so.
--- NOTE | 2021-09-13 12:45 | NUR ---
DR.PAULS WELLS. PATIENT IS SOUND ASLEEP. VSS.
--- NOTE | 2021-09-13 20:30 | NUR ---
Pt. sitting up in bed at this time. Pt. is A&OX3, assessment complete. Port to rt. chest patent, IV fluids infusing per orders. Pt. reports pain at a 9 on pain scale, gave pain meds per orders. Pt. asks when they can hav the oxycodone. Pt. informed that they can have it at 2230. Will give per orders at that time.
[2021-09-14 05:59] VITALS: BP 120/65; PULSE 85; TEMP 97.8
[2021-09-14 07:36] LABS: BASO % 0.4 % (0.0-2.0); EOS # 0.3 K/mm3 (0.0-0.7); EOS % 3.4 % (0.0-4.0); GRAN # 5.6 K/mm3 (1.4-6.5); LYMPH # 0.7 K/mm3 (1.2-3.4); LYMPH % 9.3 % (20.0-51.0); MEAN CELL VOLUME 86 fl (80.0-100.0); MEAN CORPUSCULAR HGB CONC 31 g/dl (33.0-37.0); MEAN PLATELET VOLUME 8.7 fl (7.4-10.4); MONO # 0.8 K/mm3 (0.1-0.6); MONO % 10.5 % (1.7-9.3); PLATELET COUNT 432 K/mm3 (130-400); RED BLOOD COUNT 3.36 M/mm3 (4.10-5.30); REDCELL DISTRIBUTION WIDTH-CV 14.2 % (11.5-14.5)
[2021-09-14 07:39] LABS: HEMATOCRIT 28.9 % (37.0-47.0); MEAN CORPUSCULAR HEMOGLOBIN 27 pg (27-31)
[2021-09-14 07:48] LABS: CREATININE, serum 0.75 mg/dL (0.57-1.11); MAGNESIUM 2.1 mg/dL (1.6-2.6); POTASSIUM 4.4 mmol/L (3.5-4.5)
[2021-09-14 07:58] VITALS: BP 129/77; PULSE 82; TEMP 97.5
--- NOTE | 2021-09-14 08:46 | NUR ---
Pt assessment complete. Pt assessment complete. Pt is very tearful and moaning in pain. PRN Dilauded administered. POC discussed with patient. IV Zosyn infusing. Call light within reach.
[2021-09-14 12:08] VITALS: BP 123/74; PULSE 88; TEMP 97.9
--- NOTE | 2021-09-14 14:41 | NUR ---
Record Changer met with patient to review discharge plan. Patient reports she is just in a lot of pain and is tired of suffering. Patient stated she plans on returning home upon discharge and that her takes care of her.
[2021-09-14 15:16] VITALS: BP 115/67; PULSE 74; TEMP 98.2
[2021-09-14 19:44] VITALS: BP 105/63; PULSE 63; TEMP 97.6
--- NOTE | 2021-09-14 20:00 | NUR ---
Pt. sitting up in bed with eyes closed, respirations equal and unlabored. Pt. remains this way until the pt. is alerted to the presence of the nurse. Pt. then begings to cry and moan. Pt. requests pain mediction. Discussed with the pt. the need to transition to oral pain medication. Pt. gets more upset but voices willing to try. Will give oral pain medication. Dressing to abd. incision CDI. Pt. denies further needs.
[2021-09-15 03:53] VITALS: BP 144/82; PULSE 77; TEMP 97.7
[2021-09-15 06:42] LABS: BASO % 0.7 % (0.0-2.0); EOS # 0.3 K/mm3 (0.0-0.7); EOS % 4.3 % (0.0-4.0); GRAN % 68.9 % (42.2-75.2); LYMPH # 0.7 K/mm3 (1.2-3.4); LYMPH % 12.7 % (20.0-51.0); MEAN CELL VOLUME 84 fl (80.0-100.0); MEAN CORPUSCULAR HGB CONC 32 g/dl (33.0-37.0); MEAN PLATELET VOLUME 8.6 fl (7.4-10.4); MONO # 0.7 K/mm3 (0.1-0.6); MONO % 12.7 % (1.7-9.3); PLATELET COUNT 374 K/mm3 (130-400); RED BLOOD COUNT 3.13 M/mm3 (4.10-5.30); REDCELL DISTRIBUTION WIDTH-CV 14.2 % (11.5-14.5)
[2021-09-15 06:51] LABS: HEMATOCRIT 26.3 % (37.0-47.0); HEMOGLOBIN 8.3 g/dl (12.5-16.0); MEAN CORPUSCULAR HEMOGLOBIN 27 pg (27-31)
[2021-09-15 06:57] LABS: CALCIUM 8.9 mg/dL (8.4-10.2); CREATININE, serum 0.75 mg/dL (0.57-1.11); POTASSIUM 3.9 mmol/L (3.5-4.5)
[2021-09-15 07:27] VITALS: BP 136/81; PULSE 103; TEMP 98.7
--- NOTE | 2021-09-15 10:00 | NUR ---
Pt assessment complete. Pt is sitting up in bed upon entry, becomes very vocal about pain when staff is present but appears to rest comfortably otherwise. Discussed pain medication regimen with patient, she verbalizes understanding. Denies N/V. No further needs at this time. Call light within reach.
[2021-09-15 12:00] VITALS: BP 158/88; PULSE 84; TEMP 98.6
[2021-09-15 15:22] VITALS: BP 132/67; PULSE 84; TEMP 98.7
[2021-09-15 20:00] VITALS: BP 112/76; PULSE 82; TEMP 98.1
--- NOTE | 2021-09-15 20:20 | NUR ---
Pt. sitting up in bed. Pt. is A&OX3, assessment complete. Port to rt. chest patent. Pt. reports pain at an 8 on pain scale to abd. giving pain meds per orders. Dressing to peg tube removal site CDI. Pt. denies further needs, call light within reach.
[2021-09-16 04:00] VITALS: BP 125/80; PULSE 107; TEMP 98.1
[2021-09-16 06:36] LABS: BASO % 0.7 % (0.0-2.0); EOS # 0.3 K/mm3 (0.0-0.7); EOS % 4.1 % (0.0-4.0); GRAN # 3.9 K/mm3 (1.4-6.5); GRAN % 64.8 % (42.2-75.2); MEAN CELL VOLUME 84 fl (80.0-100.0); MEAN CORPUSCULAR HGB CONC 32 g/dl (33.0-37.0); MEAN PLATELET VOLUME 8.6 fl (7.4-10.4); MONO # 0.8 K/mm3 (0.1-0.6); MONO % 12.9 % (1.7-9.3); PLATELET COUNT 400 K/mm3 (130-400); RED BLOOD COUNT 3.24 M/mm3 (4.10-5.30)
[2021-09-16 06:45] LABS: HEMATOCRIT 27.2 % (37.0-47.0); HEMOGLOBIN 8.7 g/dl (12.5-16.0); MEAN CORPUSCULAR HEMOGLOBIN 27 pg (27-31)
[2021-09-16 07:00] LABS: CALCIUM 9.3 mg/dL (8.4-10.2); CREATININE, serum 0.77 mg/dL (0.57-1.11); POTASSIUM 4.2 mmol/L (3.5-4.5)
[2021-09-16 07:49] VITALS: BP 119/70; PULSE 77; TEMP 98.1
--- NOTE | 2021-09-16 08:00 | NUR ---
PATIENT IS ORIENTED X2 AND DISPLAYS OCCATIONAL CONFUSION/FORGETFULNESS. PATIENT HAS HX OF DEMENTIA. VSS. C/O PAIN RATED AT 8/10, ALL OVER. PATIENT HAS TERMINAL CANCER DIAGNOSIS WITH METS. PATIENT HAS GOLF BALL SIZE MASS ON LEFT SIDE OF FACE. GAVE PRN IV DILAUDID INTO RIGHT PORT. LEFT ABD "OLD" PEG TUBE SITE IS CD&I WITH GAUZE. HEAD TO TOE ASSESSMENT COMPLETE. VOIDING SUFFICENT AMOUNTS. BREAKFAST TRAY ORDERED. NO OTHER NEEDS AT THIS TIME. CALL LIGHT IN REACH.
[2021-09-16 11:36] VITALS: BP 109/56; PULSE 106; TEMP 98.3
--- NOTE | 2021-09-16 15:07 | NUR ---
Call made to , Mo. He thanked me profusely for contacting him as he had many questions about how the patient is doing and making a plan about whether or not she can come home or go somewhere else where there is someone available to take care of her all the time. I discussed what SNF vs hospice would look like and even home hospice or home health care. Mo stated he would have a serious discussion with the patient tonight and touch base with me tomorrow about how that went. Notified SW of the discussion as well.
--- NOTE | 2021-09-16 15:26 | NUR ---
Pe Electrical Engineer and KAYLAN student met with patient to review discharge plan. SW discussed Home Health services and it's benefits, however patient declined stating she did not want to have people in her home at this time. KAYLAN advised patient that if she changes her mind after discharge, she can follow up with her primary care physician about HH services. KAYLAN then collaborated with Sandy Palliative RN who advised patient's is going to visit with patient tonight about plan of care and any needed rehab services.
[2021-09-16 15:28] VITALS: BP 116/73; PULSE 92; TEMP 98.5
[2021-09-16 19:53] VITALS: BP 119/72; PULSE 99; TEMP 97.7
--- NOTE | 2021-09-16 20:12 | NUR ---
PT UP TO BATHROOM INDEPENDENTLY, GAIT STEADY. REPORTS PAIN TO ABDOMEN. MEDICATED WITH HS MEDS INCLUDING [id number] 15MG PO. PT REPORTS SHE TAKES 30MG AT HOME, DID REVIEW HER HOME MED LIST AND THE LISTED DOSE FOR THE OXYCODONE IS 10MG Q4HR PRN, PT THEN AGREED WITH THAT DOSE AND STATES SHE "FORGETS" WHAT SHE TAKES. CHANGED DRSG TO ABD OLD PEG SITE. AREA IS MILDLY REDDENED AND NOT DRAINING AT THIS TIME. APPLIED NYSTATIN CREAM TO AREA AND REDRESSED WITH GAUZE. PT WEARING FENTANYL PATCH TO LEFT DELTOID. TESSLON PERLES ALSO GIVEN FOR COUGH.
[2021-09-16 23:30] VITALS: BP 113/69; PULSE 77; TEMP 98.5
--- NOTE | 2021-09-17 00:14 | NUR ---
MEDICATED WITH OXYCODONE 15MG PO FOR ABD PAIN AND TESSLON PERLES FOR COUGH. RT PORT ACCESSED AND FLUSHES WELL.
--- NOTE | 2021-09-17 04:21 | NUR ---
PT MEDICATED WITH TESSLON PERLES FOR COUGH AND OXYCODONE 15MG PO FOR ABD PAIN.
[2021-09-17 04:46] VITALS: BP 118/58; PULSE 80; TEMP 98.3
[2021-09-17 07:22] LABS: BASO % 0.7 % (0.0-2.0); EOS # 0.2 K/mm3 (0.0-0.7); EOS % 3.4 % (0.0-4.0); GRAN % 69.5 % (42.2-75.2); LYMPH # 0.8 K/mm3 (1.2-3.4); LYMPH % 13.6 % (20.0-51.0); MEAN CELL VOLUME 83 fl (80.0-100.0); MEAN CORPUSCULAR HGB CONC 32 g/dl (33.0-37.0); MEAN PLATELET VOLUME 8.7 fl (7.4-10.4); MONO # 0.7 K/mm3 (0.1-0.6); MONO % 11.9 % (1.7-9.3); PLATELET COUNT 405 K/mm3 (130-400); RED BLOOD COUNT 3.25 M/mm3 (4.10-5.30); REDCELL DISTRIBUTION WIDTH-CV 13.8 % (11.5-14.5)
[2021-09-17 07:24] LABS: HEMATOCRIT 26.9 % (37.0-47.0); HEMOGLOBIN 8.6 g/dl (12.5-16.0); MEAN CORPUSCULAR HEMOGLOBIN 26 pg (27-31)
[2021-09-17 07:25] LABS: CALCIUM 9.5 mg/dL (8.4-10.2); CREATININE, serum 0.79 mg/dL (0.57-1.11); POTASSIUM 4.1 mmol/L (3.5-4.5)
[2021-09-17 07:49] VITALS: BP 127/68; PULSE 85; TEMP 98.4
[2021-09-17] MEDS ORDERED: FENTANYL 50MCG TD (09:20)
[2021-09-17] MEDS ORDERED: TYLENOL 500MG500 MG PO (09:21)
--- NOTE | 2021-09-17 09:36 | NUR ---
Patient alert and oriented x2. Patient here for facial swelling and hyponatremia. Upon entering room, patient became anxious and stated she wanted pain medication. Patient mildly confused. Oriented patient several times during assessment. Repetitive instructions needed throughout assessment. Wound dressing changed. Prior dressing was soaked. VSS. Morning meds given with PRN Danita at 0820. Patient ordered breakfast.
[2021-09-17 11:22] VITALS: BP 111/65; PULSE 97; TEMP 98.4
--- NOTE | 2021-09-17 13:13 | NUR ---
Seat Maker followed up with patient's , Mo who is in agreement with patient discharging home and pursuing agressive care. Mo would like patient to be set up with Home Health services, however did not feel patient needed 24 hour care at this time. SW attended clinical rounds with the team and patient to discharge home today. KAYLAN followed up with patient who after speaking with her family is agreeable to . Patient states she has had [facility] in the past and would like to use them again. KAYLAN contacted Jayne at [facility] then faxed referral with discharge orders. Jayne advised they will be able to accept patient. Discharge Plan: Home with [facility]
[2021-09-17 15:09] VITALS: BP 104/67; PULSE 94; TEMP 98.4
--- NOTE | 2021-09-17 19:30 | NUR ---
PT CALLS SPOUSE, HE IS ON HIS WAY TO PICK HER UP. CHANGED DRSG TO OLD PEG SITE LEFT ABD, MINIMAL DRAINAGE. PACKED UP PT'S BELONGINGS, SHE WILL GET DRESSED. PT ASKING ABOUT MEDS TO TAKE HOME, REMINDED PT SHE HAS PAIN MEDS AT HOME.
--- NOTE | 2021-09-17 20:45 | NUR ---
PT MEDICATED WITH PAIN MEDS PRIOR TO DISCHARGE. PT TAKEN VIA W/C TO PRIVATE VEHICLE. COPY OF DISCHARGE INSTRUCTIONS SENT WITH PATIENT WELL PERSONAL BELONGINGS.
== END 2021-09-17 20:45 | disposition home health service (06) | DRG 853 ==
LOC: COL.ER 11:59 → SURG 15:05
PROVIDERS: Family Medicine; Internal Medicine; Physician Assistant; Student in an Organized Health Care Education/Training Program; Surgery; ADMIT Internal Medicine
PROC: 0DP6XUZ Removal of Feeding Device from Stomach, External Approach (ICD-10-PCS; 2021-09-10)
PROC: 0WQF0ZZ Repair Abdominal Wall, Open Approach (ICD-10-PCS; 2021-09-13)
PROC: 0DB60ZZ Excision of Stomach, Open Approach (ICD-10-PCS; principal; 2021-09-13 09:30)
DX: A41.9 Sepsis, unspecified organism (principal); J18.9 Pneumonia, unspecified organism; K94.22 Gastrostomy infection; K31.6 Fistula of stomach and duodenum; L03.311 Cellulitis of abdominal wall; C78.00 Secondary malignant neoplasm of unspecified lung; C78.1 Secondary malignant neoplasm of mediastinum; C77.1 Secondary and unspecified malignant neoplasm of intrathoracic lymph nodes; Z20.822 Contact with and (suspected) exposure to COVID-19; B37.89 Other sites of candidiasis; E22.2 Syndrome of inappropriate secretion of antidiuretic hormone; D48.0 Neoplasm of uncertain behavior of bone and articular cartilage; J44.9 Chronic obstructive pulmonary disease, unspecified; I10 Essential (primary) hypertension; E78.5 Hyperlipidemia, unspecified; K21.9 Gastro-esophageal reflux disease without esophagitis; D64.9 Anemia, unspecified; G89.29 Other chronic pain; M54.9 Dorsalgia, unspecified; F41.9 Anxiety disorder, unspecified; F32.A Depression, unspecified; R00.0 Tachycardia, unspecified; R05.9 Cough, unspecified; F17.210 Nicotine dependence, cigarettes, uncomplicated; Z79.891 Long term (current) use of opiate analgesic; Z85.89 Personal history of malignant neoplasm of other organs and systems; Z92.21 Personal history of antineoplastic chemotherapy; Z92.3 Personal history of irradiation
CPT/HCPCS: 99223-AI; 99232-AI; 99233-AI; 99239; J0456; J0696; J1170; J1650; J2250; J2270; J2405; J2543; J2704; J3370; J3475; J7030; J7050; J7120; Q9967

== ENCOUNTER → 2021-10-23 | Outpatient (CLI) | payer OTHER ==
[~2021-10-23] MED LIST changes: +CYMBALTA 60MG60 MG PO; +DAZIDOX10 MG PO; +FENTANYL 50MCG TD; +PREDNISOLO15 MG/5 M3 PO
== END ==
LOC: COL.RAD 08:15
DX: C10.9 Malignant neoplasm of oropharynx, unspecified (principal); C79.51 Secondary malignant neoplasm of bone
CPT/HCPCS: A9575

== ENCOUNTER → 2021-10-25 | Outpatient (CLI) | payer OTHER | LOC: COL.RAD 08:30 | DX: C10.2 Malignant neoplasm of lateral wall of oropharynx (principal); C79.51 Secondary malignant neoplasm of bone; M48.56XA Collapsed vertebra, not elsewhere classified, lumbar region, initial encounter for fracture | CPT/HCPCS: A9503 ==

== ENCOUNTER 2021-11-14 11:19 | Day surgery (SDC) | payer OTHER ==
[~2021-11-14] VITALS: Ht 167.6 cm; Wt 43.9 kg
[2021-11-14 11:51] VITALS: BP 110/73; PULSE 104; TEMP 99
[2021-11-14 12:06] LABS: BASO % 0.2 % (0.0-2.0); EOS % 0.2 % (0.0-4.0); GRAN # 11.6 K/mm3 (1.4-6.5); GRAN % 87.9 % (42.2-75.2); LYMPH # 0.9 K/mm3 (1.2-3.4); LYMPH % 6.5 % (20.0-51.0); MEAN CELL VOLUME 79 fl (80.0-100.0); MEAN CORPUSCULAR HGB CONC 31 g/dl (33.0-37.0); MEAN PLATELET VOLUME 9.1 fl (7.4-10.4); MONO # 0.6 K/mm3 (0.1-0.6); MONO % 4.4 % (1.7-9.3); PLATELET COUNT 425 K/mm3 (130-400); REDCELL DISTRIBUTION WIDTH-CV 14.6 % (11.5-14.5)
[2021-11-14 12:08] LABS: HEMATOCRIT 30.6 % (37.0-47.0); HEMOGLOBIN 9.5 g/dl (12.5-16.0); MEAN CORPUSCULAR HEMOGLOBIN 24 pg (27-31)
[2021-11-14 12:51] LABS: ALBUMIN 2.2 gm/dL (3.4-4.8); CALCIUM 7.8 mg/dL (8.4-10.2); CREATININE, serum 0.66 mg/dL (0.57-1.11); POTASSIUM 3.4 mmol/L (3.5-4.5)
--- NOTE | 2021-11-14 13:09 | NUR ---
Patient's HU asks if the patient's supplies could be sent to [facility]. This SW contacted office and they do not supply Jevity. Patient's is informed of this and agreeable to orders being sent to [facility]. Contact made with [facility] and patient's clinical documentation faxed to their office. Due to the patient having Adenike reports she will have to submit for authorization on the patient's supplies.
[2021-11-14 13:24] VITALS: BP 96/61; PULSE 86; TEMP 97.4
--- NOTE | 2021-11-14 13:24 | NUR ---
PT TO BAY 2 FROM OR. RECEIVED REPORT FROM PROPERTY ASSISTANT AND BIAS CUTTING MACHINE OPERATOR. ORIENTED PT TO ROOM AND CALL LIGHT. PT VERNALIZED UNDERSTANDING. CALL LIGHT WITHIN REACH. WILL CONTINUE TO MONITOR PT.
[2021-11-14 13:39] VITALS: BP 96/62; PULSE 81
--- NOTE | 2021-11-14 13:39 | NUR ---
PT CONTINUES TO REST COMFORTABLY. WILL CONTINUE TO MONITOR PT. PT DENIES ANY NEEDS AT THIS TIME.
[2021-11-14 13:54] VITALS: BP 110/64; PULSE 891
--- NOTE | 2021-11-14 13:54 | NUR ---
PT CONTINUES TO DENY ANYTHING. WILL CONTINUE TO MONITOR.
[2021-11-14 14:09] VITALS: BP 107/67; PULSE 85
--- NOTE | 2021-11-14 14:09 | NUR ---
PT DENIES ANY NEEDS. AT [facility]. WILL CONTINUE TO MONITOR.
[2021-11-14 14:20] VITALS: BP 112/65; PULSE 87
--- NOTE | 2021-11-14 14:20 | NUR ---
DISCHARGE EDUCATION COMPLETED WITH PT AND HER . THEY VERBALIZED UNDERSTANING OF HOME AND FOLLOW UP CARE. ALL QUESTIONS ANSWERED. DISCHARGE PAPERWORK GIVEN TO PT .
--- NOTE | 2021-11-14 14:20 | NUR ---
PT CONTINUES TO REMAIN STABLE. STATES SHE IS READY FOR DC.
--- NOTE | 2021-11-14 14:40 | NUR ---
PT OFF UNIT PER WHEELCHAIR. PT DISCHARGE TO HOME WITH PER PERSONAL VEHICLE.
== END 2021-11-14 14:40 | disposition home or self-care (01) ==
LOC: SDCO 11:19
PROVIDERS: Surgery
DX: C10.9 Malignant neoplasm of oropharynx, unspecified (principal); E46 Unspecified protein-calorie malnutrition; R63.4 Abnormal weight loss
CPT/HCPCS: J0690; J2704; J3010; J7120

== ENCOUNTER → 2021-11-22 | Outpatient (CLI) | payer OTHER ==
[~2021-11-22] VITALS: Ht 167.6 cm; Wt 43.7 kg
[~2021-11-22] MED LIST changes: +B-12 250 MCG PO; +PRENATABS FA1 TAB PO
[2021-11-22 12:14] VITALS: BP 117/73; PULSE 106; TEMP 98.7
== END ==
LOC: COL.RAD 11:25
DX: C10.8 Malignant neoplasm of overlapping sites of oropharynx (principal); C76.0 Malignant neoplasm of head, face and neck; C79.51 Secondary malignant neoplasm of bone
CPT/HCPCS: J2250; J3010